=== PATIENT | male | born 1940 | race Caucasian/White ===

== ENCOUNTER 2018-04-24 06:11 | Day surgery (SDC) | payer MEDICARE ==
[~2018-04-24] VITALS: Ht 154.9 cm; Wt 98.7 kg
[~2018-04-24 06:11] MED LIST: ASPI-555 PO; LEVO125T11 PO; LISI-617 PO; SIMV40TA59 PO; TAMS0.4C32 PO
[2018-04-24] MEDS ORDERED: SODIUM CHLORIDE 0.9% 1000ML 1,000 ML IV ONE (07:50)
[2018-04-24 07:51] VITALS: BP 132/69
[2018-04-24] MEDS ORDERED: GLYCOPYRROLATE 0.2 MG/ML 5 ML VIAL ONE (09:42)
[2018-04-24 09:56] VITALS: BP 108/62
[2018-04-24 10:00] VITALS: BP 112/61
[2018-04-24 10:05] VITALS: BP 104/62
[2018-04-24 10:10] VITALS: BP 115/68
[2018-04-24 10:15] VITALS: BP 111/63
== END 2018-04-24 10:30 | disposition home or self-care (01) ==
LOC: DAH 06:11 → ENDO 06:11
PROVIDERS: ATTEND Internal Medicine
DX: Z12.11 Encounter for screening for malignant neoplasm of colon (principal); K63.5 Polyp of colon; Z86.010 Personal history of colon polyps; Z80.0 Family history of malignant neoplasm of digestive organs; I10 Essential (primary) hypertension; E78.5 Hyperlipidemia, unspecified; E03.9 Hypothyroidism, unspecified; Z79.899 Other long term (current) drug therapy; Z79.01 Long term (current) use of anticoagulants; Z85.850 Personal history of malignant neoplasm of thyroid; Z68.32 Body mass index [BMI] 32.0-32.9, adult; Z88.2 Allergy status to sulfonamides; K57.30 Diverticulosis of large intestine without perforation or abscess without bleeding; K64.1 Second degree hemorrhoids
CPT/HCPCS: 45380; 88305; A4606; J3490; J7030

== ENCOUNTER → 2018-11-28 | Outpatient (CLI) | payer MEDICARE | END | disposition home or self-care (01) | LOC: RAH 13:44 | PROVIDERS: ATTEND Urology | DX: N20.0 Calculus of kidney (principal); N28.1 Cyst of kidney, acquired; K57.30 Diverticulosis of large intestine without perforation or abscess without bleeding; Z87.442 Personal history of urinary calculi | CPT/HCPCS: 74176 ==

== ENCOUNTER 2019-02-08 08:23 | Day surgery (SDC) | payer MEDICARE ==
[2019-02-06 15:57] VITALS: BP 117/64
[2019-02-06 16:38] LABS: BASOPHILS % (AUTO) 0.8 % (0.0-5.0); EOSINOPHILS % (AUTO) 5.2 % (0.0-8.0); HEMATOCRIT 41.3 % (42-54); LYMPHOCYTES % (AUTO) 27.6 % (21.0-51.0); MEAN CORPUSCULAR HEMOGLOBIN 32.8 pg (27.0-33.0); MEAN CORPUSCULAR HGB CONC 33.9 g/dL (32.0-36.0); MEAN CORPUSCULAR VOLUME 96.6 fL (79-99); MONOCYTES % (AUTO) 8.9 % (3.0-13.0); NEUTROPHILS % (AUTO) 57.5 % (40.0-77.0); PLATELET COUNT (AUTO) 187 K/uL (130-400); RED BLOOD CELL COUNT(AUTO) 4.28 MIL/uL (4.50-6.20); RED CELL DISTRIBUTION WIDTH 13.5 % (11.0-15.5); WHITE BLOOD COUNT (AUTO) 6.2 K/uL (4.8-10.8)
[2019-02-06 16:45] LABS: CREATININE 1.3 mg/dL (0.5-1.5); POTASSIUM 3.8 mmol/L (3.5-5.1)
[2019-02-08] VITALS (17 sets, daily range): BP systolic 120–142; BP diastolic 61–78
[~2019-02-08] VITALS: Ht 180.3 cm; Wt 99.7 kg
[~2019-02-08 08:23] MED LIST changes: -ASPI-555 PO; +LEVO100T12 PO; -LEVO125T11 PO; +SIMV-43 PO; -SIMV40TA59 PO
[2019-02-08] MEDS ORDERED: LACTATED RINGERS 1000ML 1,000 ML IV ONE (09:08)
[2019-02-08] MEDS: CEFTRIAXONE SODIUM 1 GM ONE ×2 (09:58→10:42)
[2019-02-08] MEDS ORDERED: LIDOCAINE PF 2% 5ML ABBOJECT ONE (10:33)
[2019-02-08] MEDS ORDERED: FENTANYL CITRATE PF 50 MCG/1 ML 2ML VIAL ONE (10:34)
[2019-02-08] MEDS ORDERED: PROPOFOL 10 MG/ML 20ML VIAL IV ONE (10:34)
[2019-02-08] MEDS ORDERED: GLYCOPYRROLATE 1 MG/5 ML SYRINGE ONE (11:00)
--- NOTE | 2019-02-08 12:45 | NUR ---
post received pt from [facility], s/p cystolitholopaxy, pt awake and alert in bed,no distress noted [address] no distress noted. pt denied any pain or discomforts , vs stable on arrival. call light within reach
[2019-02-08] MEDS ORDERED: PHENAZOPYRIDINE HCL 200 MG TABLET ONE (12:51)
--- NOTE | 2019-02-08 13:24 | NUR ---
dc pt dc home via [facility], no distress noted. denies anypain or discomforts. accompanied by spouse, fc in place
== END 2019-02-08 13:24 | disposition home or self-care (01) ==
LOC: DAH 08:23
PROVIDERS: ATTEND Urology
DX: N21.0 Calculus in bladder (principal); I10 Essential (primary) hypertension; E78.5 Hyperlipidemia, unspecified; Z87.891 Personal history of nicotine dependence; Z85.850 Personal history of malignant neoplasm of thyroid; Z87.442 Personal history of urinary calculi; Z98.890 Other specified postprocedural states; Z88.2 Allergy status to sulfonamides; Z79.899 Other long term (current) drug therapy
CPT/HCPCS: 36415 ×2; 52317; 80048; 82360; 85025; 93005; A4215; A4221; A4222; A4223; A4344; A4358; A4600; A4663; A4930; A6260; J0696; J2001; J2704; J3010; J3490; J7120 ×2